=== PATIENT | male | born 1960 | race Caucasian/White ===

== ENCOUNTER 2019-01-12 14:18 | Observation (INO) ==
[2019-01-12] MEDS ORDERED: ONDANSETRON 4 MG/2 ML VIAL IV STA (14:35)
[2019-01-12] MEDS ORDERED: SODIUM CHLORIDE 0.9% 2,000 ML IV STA (14:35)
[2019-01-12 15:02] LABS: Basophils # 0.1 10*3/uL (0.0-0.2); Basophils % 0.7 % (0.0-0.8); Eosinophils # 0.6 10*3/uL (0.0-0.87); Eosinophils % 4.2 % (0.00-10.9); Hematocrit 45.6 VOL% (42.0-52.0); Hemoglobin 14.6 GM/DL (14.0-18.0); Immature Granulocytes % 0.7 %; Lymphocytes # 3.5 10*3/uL (1.4-4.0); Lymphocytes % 23.5 % (21.2-54.2); Mean Corpuscular Volume 84.6 FL (87-102); Mean Platelet Volume 10.5 FL (9.6-12.0); Monocytes % 9.1 % (1.7-12.7); Neutrophils % 61.8 % (38.7-73.9); Platelet Count 256 T/CUMM (130-400); Red Blood Count 5.39 MC/CUMM (3.8-5.5); Red Cell Distribution Width 12.3 % (9.3-17.3); White Blood Count 14.8 T/CUMM (4-12)
[2019-01-12 15:30] LABS: Alanine Aminotransferase 54 U/L (16-61); Albumin 4.9 G/DL (3.4-5.0); Alkaline Phosphatase 107 U/L (45-117); Aspartate Amino Transferase 36 U/L (0-37); Blood Urea Nitrogen 39 MG/DL (7-18); Calcium 9.4 MG/DL (8.5-10.1); Glucose 109 MG/DL (74-106); Osmolality,Calculated 273.5 MOS/KG (273-304); Total Protein 8.2 G/DL (6.4-8.3)
[2019-01-12] MEDS ORDERED: guaiFENesin/DM ER 600-30 MG TABLET PO PRN (16:15)
[2019-01-12] MEDS ORDERED: diphenhydrAMINE CAP 25 MG CAPSULE PO PRN (16:15)
[2019-01-12] MEDS ORDERED: PROMETHAZINE 25 MG/1 ML VIAL IM PRN (16:15)
[2019-01-12] MEDS ORDERED: ONDANSETRON 4 MG/2 ML VIAL IV PRN (16:15)
[2019-01-12] MEDS ORDERED: ACETAMINOPHEN 325 MG TABLET PO PRN (16:15)
[2019-01-12] MEDS ORDERED: ZALEPLON 5 MG CAPSULE PO PRN (16:15)
[2019-01-12] MEDS ORDERED: NICOTINE 21 MG/24 HR PATCH TRANSDERM PRN (16:15)
[2019-01-12] MEDS ORDERED: DEXTROSE 50% 25 GM/50 ML VIAL IV PRN ×2 (17:41)
[2019-01-12] MEDS ORDERED: GLUCAGON 1 MG VIAL IM PRN ×2 (17:41)
[2019-01-12] MEDS ORDERED: INSULIN REGULAR 100 UNIT/ML SUBCUT SCH (21:00)
[2019-01-12] MEDS: SODIUM CHLORIDE 0.9% 1,000 ML IV SCH (21:14)
[2019-01-12 23:55] LABS: Apearance,Urine CLEAR (Clear); Bacteria,Urine Occasional /HPF (Few); Bilirubin,Urine Negative (Negative); Blood, Urine Negative (Negative); Glucose,Urine (UA) Negative (Negative); Ketones,Urine Negative (Negative); Nitrite,Urine Negative (Negative); Protein,Urine Negative; RBC,Urine 1 /HPF (0-4); Urine Color Straw (Yellow); Urine Specific Gravity 1.004 (1.001-1.035); Urine Urobilinogen < 2.0 EU/DL (0.2-1.0); WBC,Urine <1 /HPF (0-6)
[2019-01-13] MEDS: SODIUM CHLORIDE 0.9% 1,000 ML IV SCH ×2 (04:22→09:00)
[2019-01-13 05:26] LABS: Basophils # 0.1 10*3/uL (0.0-0.2); Basophils % 0.7 % (0.0-0.8); Eosinophils # 0.5 10*3/uL (0.0-0.87); Eosinophils % 6.6 % (0.00-10.9); Hematocrit 40.4 VOL% (42.0-52.0); Hemoglobin 13.2 GM/DL (14.0-18.0); Immature Granulocytes % 0.2 %; Immature Granulocytes Absolute 0.02 #; Lymphocytes # 2.9 10*3/uL (1.4-4.0); Lymphocytes % 35.1 % (21.2-54.2); Mean Corpuscular HGB Conc 32.7 GM/DL (32-36); Mean Corpuscular Volume 84.7 FL (87-102); Neutrophils % 47.4 % (38.7-73.9); Platelet Count 204 T/CUMM (130-400); Red Blood Count 4.77 MC/CUMM (3.8-5.5); Red Cell Distribution Width 12.3 % (9.3-17.3); White Blood Count 8.2 T/CUMM (4-12)
[2019-01-13 06:09] LABS: Albumin 3.8 G/DL (3.4-5.0); Bilirubin,Total 0.9 MG/DL (0.2-1.0); Calcium 8.4 MG/DL (8.5-10.1); Osmolality,Calculated 282.7 MOS/KG (273-304); Risk Ratio 3.42; Thyroid Stimulating Hormone 2.28 uIU/ml (0.358-3.74); Total Protein 6.4 G/DL (6.4-8.3); VLDL CHOLESTEROL 43.4 MG/DL
[2019-01-13] MEDS ORDERED: PANTOPRAZOLE 40 MG TABLET PO SCH (09:00)
[2019-01-13] MEDS ORDERED: sitaGLIPtin 100 MG TABLET PO SCH (09:00)
[2019-01-13 09:53] VITALS: BP 126/67
== END 2019-01-13 09:40 | disposition home or self-care (01) ==
LOC: N.ED 14:18 → N.EDINP 14:18 → SUATTDRO 16:15 → N.5E 19:14
PROVIDERS: ADMIT Family Medicine; ATTEND Internal Medicine